=== PATIENT | female | born 1985 | race Caucasian/White ===

== ENCOUNTER 2021-12-26 08:08 | Emergency (ER) | payer MEDICAID, SELFPAY ==
[2021-12-26 08:16] VITALS: BP 121/80; PULSE 63; RESP 16; TEMP 36.6; O2SAT 99
--- NOTE | 2021-12-26 08:30 | DI.RAD_ITS ---
Exam(s) XR SHOULDER LT COMPLETE 2+V EXAM: XR SHOULDER LT COMPLETE 2+V CLINICAL HISTORY: Fall, R/O Fracture TECHNIQUE: COMPARISON: No exams were available for comparison FINDINGS: Five views were obtained. There is no evidence of acute fracture or dislocation. IMPRESSION: RADIATION DOSE DELIVERED: Total DLP
--- NOTE | 2021-12-26 08:45 | ED.GENADUL_ITS ---
Discharge Plan Disposition Patient Disposition: HOME Condition: Stable Discharge Details Clinical Impression: Injury of left clavicle Primary Care Provider: None,None ED Provider: Christina Vaca Home Meds and New Rx's Prescriptions: No Action loratadine 10 mg Capsule 10 mg PO DAILY PRN Discharge Instructions Instructions: Shoulder Sprain (ED) Additional Instructions: At this time there is no acute fracture or dislocation noted on x-ray. Rest ice compression please take Tylenol or Ibuprofen with food every 4-6 hours as needed for pain and swelling. Wear the sling as needed for comfort. You may take it off when sleeping. Referrals: Alvarado Graves MD [ [facility]FF [facility]YSICIAN] - 1 week (Left shoulder injury Questionable clavicle fracture) Discharge Data Discharge Date/Time-TO BE ENTERED AT DEPARTURE: 12/26/21 09:53 Medical Decision Making 36 Year old female presents to ED with CC of Fall onto outstretched arms,C/o lefts shoulder and clavicle pain.Denies C-spine tenderness, no back pain. She reports that she tripped over a box approximately 2 feet high this morning at 4 AM landing on outstretched arms bilaterally. She is complaining of left shoulder pain. She is able to flex and extend her left elbow distal radial pulses intact distal CMS intact no other obvious deformity or injury. She does have possible clavicular injury. She reports that the bump on the top of her shoulder is chronic. She did not take any medications prior to arrival. 0846: XR, Tylenol. Ice Pack ordered. 0900: Per RN report patient refused Tylenol.. X-ray report negative for fracture. We will place her in a sling follow-up with orthopedics. Discussed rest ice compression elevate care and strict return instructions, patient verbalized understanding. Will place patient on Ortho Follow up list. Discussed home care and follow-up with patient who verbalizes understanding. Medical Records Medical records reviewed: Yes I reviewed the patient's medical records. HPI General Mode of arrival: ambulatory . Date/Time Provider Initiated Documentation: 12/26/21 08:12 . Limitations to Documentation: no limitations . Information obtained by: patient and RN notes reviewed . HPI Narrative: 36 Year old female presents to ED with CC of Fall onto outstretched arms,C/o lefts shoulder and clavicle pain.Denies C-spine tenderness, no back pain. She reports that she tripped over a box approximately 2 feet high this morning at 4 AM landing on outstretched arms bilaterally. She is complaining of left shoulder pain. She is able to flex and extend her left elbow distal radial pulses intact distal CMS intact no other obvious deformity or injury. She does have possible clavicular injury. She reports that the bump on the top of her shoulder is chronic. She did not take any medications prior to arrival. Related Data Home Medications Medication Instructions Recorded Confirmed loratadine 10 mg capsule 10 mg PO DAILY PRN 12/26/21 12/26/21 Allergies Allergy/AdvReac Type Severity Reaction Status Date / Time No Known Allergies Allergy Unverified 12/26/21 08:23 General Stated Complaint: Orthopedic GANESH: 4 Review of Systems All systems reviewed & are unremarkable except as noted in HPI and below Musculoskeletal Musculoskeletal: Reports as per HPI and Reports loss of height (Left clavicle) Comments: Tenderness over Mid clavicle PFSH All Active Problems (Updated 12/26/21 @ 09:40 by Christina Vaca) Injury of left clavicle (Acute) Social History Smoking/Tobacco Use Status: Current every day Tobacco Type: cigarettes Smoking risk assessment performed?: Yes Alcohol Intake: current Alcohol Intake frequency: a few times a month Drug use: Daily Substance use type: marijuana Do you feel safe at home: Yes Do you feel safe in your relationship?: Yes Exam Narrative Exam Narrative: General: Well Developed, Awake and Alert, conversant. Skin: Warm and Dry HEENT: Head: No palpable deformities, Normocephalic Eyes: Pupils PERRLA, EOM's intact. No periorbital eccymosis or step off Ears: Canal patent. Tympanic membranes are clear . No hernandez's sign, no hemptympanum. Nose/Face: Atraumatic. Facial bones nontender to palpation and stable with manipulation. Mouth/Throat: No intraoral trauma. Teeth and mandible are intact. Neck: No midline tenderness, no step off, no deformity to palpation of C-spine. Trachea midline. Chest: No surface trauma. Nontender without crepitus or deformity. Lungs clear to ausculatation bilaterally. Heart: RRR, no rubs, murmurs or gallop. Abdomen: No abrasions, ecchymosis, or surface trauma. Nondistended. Nontender to palpation no guarding, rebound, or rigidity. Pelvis: Nontender to palpation and stable to compression. Femoral pulses strong and equal Extremities: no surface trauma. Sensation intact. Peripheral pulses intact and equal. Tenderness with palpation of the left clavicle, does have swelling noted to the top of the left shoulder which she reports is chronic. No skin tenting. Neuro: ANO x4, GCS 15, cranial nerves II through XII intact. Motor and sensory exam nonfocal. Reflexes are symmetric. Course Vital Signs Vital signs: Vital Signs Temperature 36.6 C 12/26/21 08:16 Pulse 63 12/26/21 08:16 Respiratory Rate 16 12/26/21 08:16 Blood Pressure 121/80 12/26/21 08:16 Pulse Oximetry 99 12/26/21 08:16 Temperature 36.6 C 12/26/21 08:16 Temperature Source Temporal Artery Scan 12/26/21 08:16 Pulse 63 12/26/21 08:16 Respiratory Rate 16 12/26/21 08:16 Respiratory Effort Non-Labored 12/26/21 08:21 Blood Pressure 121/80 12/26/21 08:16 Blood Pressure Position Sitting 12/26/21 08:16 Pulse Oximetry 99 12/26/21 08:16 Oxygen Delivery Method Room Air 12/26/21 08:16 Oxygen Flow Rate 0 12/26/21 08:16 Pain Level 8 12/26/21 08:42 PAWSS Have you Been Recently Intoxicated or Drunk Within the Last 30 days?: Yes Have you Ever Experienced Previous Episodes of Alcohol Withdrawal?: No Have you ever Experienced Withdrawal Seizures?: No Have you ever Experienced Delirium Tremens(DT)s?: No Have you ever undergone Alcohol Rehabilitation Treatment (i.e, inpt ot outpatient treatment programs)?: No Have you ever Experienced Blackouts?: No Have you ever Combined Alcohol with other Downers within the last 90 days?: No Have you ever Combined Alcohol with any other Substance of Abuse during the last 90 days?: No Positive Blood Alcohol level on Presentation? [PCS.BAL]: No Evidence of Increased Autonomic Activity (i.e. HR>120, tremor, sweating, agitation, nausea)?: No Result: 1
--- NOTE | 2021-12-26 09:46 | NUR.NOTE ---
Nursing Note: Patient placed on ortho list for left shoulder injury w/sling. Referral given to Care Management needs PCP, to establish care, routine follow up. Ebony Lim
--- NOTE | 2021-12-27 11:24 | CMACTNOTE_ITS ---
- If Service Date Differs Date of service: 12/27/21 Time of Service: 11:24 Care Management Activity Note Kamila Green is seen in the ED for an injury to her left clavicle. TJ receives a request from ED provider to assist Kamila Green in establishing care with a PCP. A review of her chart reveals that she resides in [place], [place]. CM telephones Kamila Green to ask where she would like to establish care. She advises she was formerly seen at [facility] in [place] but is no longer an a ctive patient there and would prefer to establish with their [place] office. She, however, doesn't know if they are accepting new patients. TJ telephones the [place] office at [phone] Isaiah Robles is accepting new patients. This information is relayed to Kamila Green who states she will contact the [place] office to obtain new patient paperwork and to schedule an appointment.
== END 2021-12-26 09:53 | disposition home or self-care (01) ==
PROVIDERS: Emergency Provider Registered Nurse Emergency
DX: S49.82XA Other specified injuries of left shoulder and upper arm, initial encounter (principal); W18.39XA Other fall on same level, initial encounter
CPT/HCPCS: 99283; 73030